=== PATIENT | male | born 1990 | race Caucasian/White ===

== ENCOUNTER → 2020-02-05 | Outpatient (CLI) | payer SELFPAY | LOC: M LABSMTC 14:12 | PROVIDERS: ATTEND Pediatrics | DX: Z20.828 Contact with and (suspected) exposure to other viral communicable diseases (principal) ==

== ENCOUNTER → 2020-07-27 | Outpatient (CLI) | payer SELFPAY | LOC: M OUTALCOH 08:04 | PROVIDERS: ATTEND Psychiatry & Neurology Psychiatry | DX: Z02.2 Encounter for examination for admission to residential institution (principal) ==

== ENCOUNTER 2020-07-28 16:31 | Outpatient (RCR) | payer SELFPAY | END 2020-07-29 | LOC: M OUTALCOH 16:31 | PROVIDERS: ATTEND Psychiatry & Neurology Psychiatry | DX: F10.10 Alcohol abuse, uncomplicated (principal) ==

== ENCOUNTER 2020-08-27 11:30 | Outpatient (RCR) | payer SELFPAY | END 2020-08-28 | LOC: M OUTALCOH 11:30 | PROVIDERS: ATTEND Psychiatry & Neurology Psychiatry | DX: F10.10 Alcohol abuse, uncomplicated (principal) ==

== ENCOUNTER 2020-09-24 11:30 | Outpatient (RCR) | payer SELFPAY | END 2020-09-28 | LOC: M OUTALCOH 11:30 | PROVIDERS: ATTEND Psychiatry & Neurology Psychiatry | DX: F10.10 Alcohol abuse, uncomplicated (principal) ==

== ENCOUNTER 2020-10-01 13:19 | Outpatient (RCR) | payer SELFPAY | END 2020-10-28 | LOC: M OUTALCOH 13:19 | PROVIDERS: ATTEND Psychiatry & Neurology Psychiatry | DX: F10.10 Alcohol abuse, uncomplicated (principal) ==